=== PATIENT | female | born 1985 | race Caucasian/White ===

== ENCOUNTER 2017-11-28 02:09 | Emergency (ER) | payer SELFPAY, MEDICAID ==
[2017-11-28 02:28] LABS: URINE HCG POC HCG POSITIVE (Negative)
[2017-11-28 02:43] LABS: BILIRUBIN,URINE NEGATIVE (NEG); CLARITY,URINE CLOUDY; COLOR,URINE YELLOW; GLUCOSE,URINE NEGATIVE (NEG); NITRITE,URINE NEGATIVE (NEG); PH,URINE 6.5; PROTEIN,URINE 30 mg/dL (NEG-TRACE)
[2017-11-28 03:08] LABS: BACTERIA,URINE MANY /HPF (0-FEW); RBC,URINE >40 /HPF (0-2); WBC,URINE TNTC /HPF (0-4)
[2017-11-28 03:09] LABS: SQUAMOUS EPITHELIAL CELL,UR FEW /LPF
[2017-11-28 03:22] LABS: ADD MAN DIFF? NO
[2017-11-28 03:29] LABS: BASO % 0 % (0-3); EOS # 0.1 x10^3/uL (0.0-0.7); EOS % 1 % (0-3); HEMATOCRIT 31.2 % (36.0-47.0); HEMOGLOBIN 10.7 g/dL (12.0-15.5); LYMPH # 1.7 x10^3/uL (1.0-4.8); LYMPH % 17 % (24-48); MEAN CORPUSCULAR HEMOGLOBIN 30 pg (25-35); MEAN CORPUSCULAR HGB CONC 34 g/dL (31-37); MEAN CORPUSCULAR VOLUME 86 fL (79-100); MONO # 0.8 x10^3/uL (0.0-1.1); MONO % 8 % (0-9); NEUT # 7.2 x10^3uL (1.8-7.7); NEUT % 74 % (31-73); PLATELET COUNT 224 x10^3/uL (140-400); RED BLOOD COUNT 3.62 x10^6/uL (3.50-5.40); RED CELL DISTRIBUTION WIDTH 14.3 % (11.5-14.5); WHITE BLOOD COUNT 9.8 x10^3/uL (4.0-11.0)
[2017-11-28 03:48] LABS: ANION GAP 8 (6-14); BLOOD UREA NITROGEN 13 mg/dL (7-20); BUN/CREATININE RATIO 22 (6-20); CALCIUM 8.2 mg/dL (8.5-10.1); CARBON DIOXIDE 27 mmol/L (21-32); CHLORIDE 99 mmol/L (98-107); CREATININE 0.6 mg/dL (0.6-1.0); GFR 115.9; GLUCOSE 110 mg/dL (70-99); POTASSIUM 3.6 mmol/L (3.5-5.1); SODIUM 134 mmol/L (136-145)
[2017-11-28 03:54] LABS: ALBUMIN 3.2 g/dL (3.4-5.0); ALK PHOS 67 U/L (46-116); ALT (SGPT) 14 U/L (14-59); AST (SGOT) 13 U/L (15-37); TOTAL BILIRUBIN 0.6 mg/dL (0.2-1.0); TOTAL PROTEIN 6.5 g/dL (6.4-8.2)
[2017-11-30 14:23] LABS: CHLAMYDIA PROBE Negative (Negative); GC PROBE Negative (Negative)
== END 2017-11-28 04:52 | disposition home or self-care (01) ==
LOC: ER 02:09
DX: O03.88 Urinary tract infection following complete or unspecified spontaneous abortion (principal); N93.9 Abnormal uterine and vaginal bleeding, unspecified; F11.10 Opioid abuse, uncomplicated
CPT/HCPCS: 36415; 76801; 80053; 81001; 81025; 84702; 85025; 86900; 86901; 87086; 87491; 87591; 99285-25; Q0111

== ENCOUNTER 2019-05-01 19:39 | Inpatient (IN) | payer OTHER ==
[~2019-05-01] VITALS: Ht 165.1 cm; Wt 70.8 kg
[~2019-05-01 19:39] MED LIST: CEPH-264 PO; FLUC150T PO; SULF1TAB24 PO
[2019-05-01 20:03] VITALS: BP 122/77
[2019-05-01 20:10] LABS: BILIRUBIN,URINE NEGATIVE (NEG); CLARITY,URINE CLEAR; COLOR,URINE YELLOW; NITRITE,URINE NEGATIVE (NEG); PH,URINE 6.5; PROTEIN,URINE 30 mg/dL (NEG-TRACE)
[2019-05-01] MEDS ORDERED: LIDOCAINE 1% PF 30 ML VIAL. INJ PRN (20:15)
[2019-05-01] MEDS ORDERED: OXYTOCIN 30 UNIT/500 ML PREMIX 500 ML IV PRN (20:15)
[2019-05-01] MEDS ORDERED: 0.9 % SODIUM CHLORIDE 10 ML DISP.SYRIN. IV PRN (20:15)
[2019-05-01] MEDS ORDERED: TERBUTALINE 1 MG/ML VIAL. SQ PRN (20:15)
[2019-05-01 20:18] LABS: BARBITURATES NEG (NEG); BENZODIAZEPINES NEG (NEG); CANNABINOIDS NEG (NEG); COCAINE NEG (NEG); METHADONE NEG (NEG); OPIATES POS (NEG); PHENCYCLIDINE NEG (NEG)
[2019-05-01 20:19] LABS: AMPHETAMINE/METHAMPHETAMINE POS (NEG)
[2019-05-01 20:20] LABS: BACTERIA,URINE MANY /HPF (0-FEW); RBC,URINE OCC /HPF (0-2); SQUAMOUS EPITHELIAL CELL,UR MANY /LPF; TRICHOMONAS,URINE PRESENT
[2019-05-01 20:57] LABS: BASO # 0.1 x10^3/uL (0.0-0.2); BASO % 1 % (0-3); EOS # 0.1 x10^3/uL (0.0-0.7); EOS % 1 % (0-3); HEMATOCRIT 21.4 % (36.0-47.0); LYMPH # 1.5 x10^3/uL (1.0-4.8); LYMPH % 14 % (24-48); MEAN CORPUSCULAR HEMOGLOBIN 19 pg (25-35); MEAN CORPUSCULAR HGB CONC 31 g/dL (31-37); MEAN CORPUSCULAR VOLUME 61 fL (79-100); MONO # 0.7 x10^3/uL (0.0-1.1); MONO % 7 % (0-9); NEUT # 8.3 x10^3/uL (1.8-7.7); NEUT % 78 % (31-73); PLATELET COUNT 298 x10^3/uL (140-400); RED BLOOD COUNT 3.49 x10^6/uL (3.50-5.40); WHITE BLOOD COUNT 10.6 x10^3/uL (4.0-11.0)
[2019-05-01 21:00] LABS: HEMOGLOBIN 6.6 g/dL (12.0-15.5)
[2019-05-01 21:19] LABS: ANISOCYTOSIS SLIGHT; HYPOCHROMIA MOD; MICROCYTOSIS MARKED; PLT ESTIMATE ADEQUATE (ADEQUATE); POLYCHROMASIA SLIGHT; TOXIC GRANULATION SLIGHT
[2019-05-01] MEDS: IV RINGERS,LACTATED 1000ML 1,000 ML IV SCH ×2 (21:27→21:42)
--- NOTE | 2019-05-01 21:27 | RAD ---
CLINICAL HISTORY: confirm , size, and dates COMPARISON: None available. TECHNIQUE: Limited transabdominal ultrasound of the uterus was performed. FINDINGS: There is a single live fetus in cephalic position. Cardiac activity is visualized and documented at a rate of 162 beats per minute. The placenta is anterior and fundal without placenta previa. The amniotic fluid is normal for gestational stage. the amniotic fluid index is 10.4. Current measurements are: BPD - 8.93 cm = 36 weeks 1 days HC - 33.35 cm = 38 weeks 1 days AC - 33.7 cm = 37 weeks 4 day FL - 7.41 cm = 37 weeks 6 days The gestational size based on todays measurements is 37 weeks 3 days +/- two weeks. The estimated weight is 3243+/- 480 gm. All measured ratios and indices are within normal limits. IMPRESSION: 1. Single live intrauterine gestation with an estimated gestational age of 37 weeks 3 days. Electronically signed by: Ney Suero MD (05/01/2019 9:24 PM) [facility]
[2019-05-01] MEDS ORDERED: AMPICILLIN SODIUM 2 GM in IV NORMAL SALINE 100ML 100 ML IV ONE (21:30)
[2019-05-01 22:18] VITALS: BP 166/101
[2019-05-01 22:48] LABS: ALT (SGPT) 15 U/L (14-59); AST (SGOT) 26 U/L (15-37)
[2019-05-01] MEDS ORDERED: MAGNESIUM SULFATE 4GM 100 ML IV ONE ×2 (22:55→23:00)
[2019-05-01] MEDS ORDERED: ROPIVacaine 0.2% PF 10 ML VIAL. ONE ×2 (23:00→23:08)
[2019-05-01] MEDS ORDERED: L&D EPIDURAL SYRINGE 50 ML ONE (23:09)
[2019-05-01] MEDS ORDERED: MAGNESIUM SULFATE 20GM 500 ML IV SCH (23:15)
[2019-05-01] MEDS: MAGNESIUM SULFATE 20GM 500 ML IV SCH (23:19)
[2019-05-01] MEDS ORDERED: ROPIVacaine 0.2% IN 0.9%NACL PF 40 MG/20 ML DISP.SYRIN. EPID PRN (23:30)
[2019-05-01] MEDS ORDERED: IV RINGERS,LACTATED 1000ML 1,000 ML IV SCH (23:30)
[2019-05-01] MEDS ORDERED: L&D EPIDURAL SYRINGE 50 ML EPID PRN (23:30)
[2019-05-01] MEDS ORDERED: NALOXONE 0.4 MG/ML VIAL. IV PRN (23:30)
[2019-05-02] VITALS (7 sets, daily range): BP systolic 121–149; BP diastolic 67–89
[2019-05-02] MEDS ORDERED: OXYTOCIN PREMIX 30 UNIT/500 ML NS BAG. IV ONE (01:00)
[2019-05-02] MEDS ORDERED: MMR per PROTOCOL. MC PRN (01:17)
--- NOTE | 2019-05-02 01:22 | PDOC1 ---
OB - History Hx of Present Care: Limited Care Ultrasounds: Normal mid trimester US Obstetrical Complications: None Medical Complications: Other (SA) Other Concerns: Anemia Past Family/Social History * Past Medical, Surgical, Family and Obstetric Histories reviewed from chart. Rubella: Immune RPR/VDRL: Negative OB - Chief Complaint & HPI Date of Admission: Date of Admission: May 02, 2019 at 00:56 Chief Complaint/History : 8 Para: 3 EDC: May 19, 2019 Reason for admission: active labor Admission Nurse Assessment Rev: Yes OB - Admission Exam Physical Exam Vitals: VS - Last 72 Hours, by Label Date Time Temp Pulse Resp B/P (MAP) Pulse Ox O2 Delivery O2 Flow Rate FiO2 05/01/19 23:49 18 98 Room Air 05/01/19 22:18 98.4 99 20 166/101 98.4 05/01/19 20:03 98.2 99 20 122/77 (92) Room Air 98.2 HEENT: Normal, Nasal Mucosa Normal, Oropharynx Normal, Moist Membranes, F ontanelles Normal Heart: Regular Rate Lungs: Clear, Equal Abdomen: Gravid Extremities: Normal Pulses, No tenderness or swelling Reflexes: Normal Cervical Dilatation: 3cm Effacement: 50% Station: Ballotable Membranes: Intact Amniotic Fluid: Meconium Accelerations: Accelerations Present Decelerations: No decelerations Short Term Variability: Present Contractions on Admission: 6-10 Minutes Apart Intensity: Moderate Assessment/Plan Assessment/Plan TIUP SA Anemia Labor PIH ACSVD Mg IM Consult MURRAY POSEY MD May 02, 2019 01:22
[2019-05-02] MEDS ORDERED: 0.9 % SODIUM CHLORIDE 10 ML DISP.SYRIN. IV PRN (01:30)
[2019-05-02] MEDS ORDERED: BENZOCAINE 20% TOPICAL AEROSOL SPRAY 57GM CAN. TP PRN (01:30)
[2019-05-02] MEDS ORDERED: MAGNESIUM HYDROXIDE 2,400 MG/30 ML ORAL.SUSP. PO PRN (01:30)
[2019-05-02] MEDS ORDERED: AMPICILLIN SODIUM 1 GM in IV NORMAL SALINE 50ML 50 ML IV SCH (01:30)
[2019-05-02] MEDS ORDERED: ACETAMINOPHEN 325 MG TABLET. PO PRN (01:30)
[2019-05-02] MEDS ORDERED: IBUPROFEN 400 MG TABLET. PO PRN (01:30)
[2019-05-02] MEDS ORDERED: PHENYLEPH/MINERAL OIL/PETROLAT RECTAL OINTMENT TUBE. RC PRN (01:30)
[2019-05-02] MEDS ORDERED: diphenhydrAMINE HCL 25 MG CAPSULE PO PRN (01:30)
[2019-05-02] MEDS ORDERED: HYDROCORTISONE 1% TOPICAL OINTMENT 30GM TUBE. TP PRN (01:30)
[2019-05-02] MEDS ORDERED: MAG HYDROX/ALUMINUM HYD/SIMETH 30 ML ORAL.SUSP PO PRN (01:30)
[2019-05-02] MEDS ORDERED: SIMETHICONE 80 MG TAB.CHEW PO PRN (01:30)
[2019-05-02] MEDS ORDERED: OXYTOCIN 30 UNIT/500 ML PREMIX 500 ML IV PRN (01:30)
[2019-05-02] MEDS ORDERED: ZOLPIDEM 5 MG TABLET. PO PRN (01:30)
[2019-05-02] MEDS: IV RINGERS,LACTATED 1000ML 1,000 ML IV SCH ×2 (02:21→10:13)
[2019-05-02] MEDS: ACETAMINOPHEN 500 MG TABLET PO PRN (03:10)
[2019-05-02] MEDS: diphenhydrAMINE HCL 25 MG CAPSULE PO PRN (03:11)
[2019-05-02 04:38] LABS: CREATININE,RANDOM URINE 104.2 mg/dL (Not Establ.)
[2019-05-02] MEDS ORDERED: LIDOCAINE 2% PF 5 ML VIAL. ONE (04:57)
[2019-05-02] MEDS: IBUPROFEN 400 MG TABLET. PO SCH ×2 (06:00→14:00)
--- NOTE | 2019-05-02 06:38 | EKG ---
[facility] [address] [place] [address] Test Date: 2019-05-01 Test Time: 23:29:45 Pat Name: WHIT MORE Department: Room: 386 1 Gender: F [employer] Brakes: SWETA : 1985 Requested By: NATALIE HDZ Order Number: [id number] Reading MD: Measurements Intervals [place] Rate: 84 P: 59 CA: 168 QRS: 55 QRSD: 74 T: 55 QT: 360 QTc: 429 Interpretive Statements SINUS RHYTHM LEFT ATRIAL ABNORMALITY ABNORMAL ECG RI6.02 No previous ECG available for comparison
--- NOTE | 2019-05-02 09:37 | PDOC1 ---
History and Physical Date of Admission Date of Admission DATE: 05/02/19 TIME: 07:37 Identification/Chief Complaint Chief Complaint CONSULTED TO SEE PT WHO IS , PRESENTED IN LABOR 36 WEEKS, NO CARE ON METH, HX POLYSUBSTANCE ABUSE, C/O CHEST DISCOMFORT, now resolved on my visit, admits to using iv heroin on 04/30, meth last week DEL AT 0200 TODAY APGARS REPORTED GOOD BY RN Past Medical History Past Medical History Past Medical History Past Medical History: Other Additional Past Medical Histor: heroin use Past Surgical History: No Surgical History Alcohol Use: Occasionally Drug Use: Heroin, Other, METH GI: No pertinent hx Heme/Onc: No pertinent hx Psych: Anxiety, Addictions Family History Family History: Hypertension Social History Smoke: <1 pack per day ALCOHOL: occassional Drugs: Heroin, Crystal meth, Other (RECENTLY FIRED FROM JOB AT [employer]) Current Problem List Problem List Problems Medical Problems: (1) Anemia Status: Chronic (2) PIH ( induced hypertension) Status: Chronic Current Medications Current Medications Current Medications Sodium Chloride (Normal Saline Flush) 3 ml QSHIFT PRN IV AFTER MEDS AND BLOOD DRAWS; Start 05/01/19 at 20:15 Ringer's Solution 1,000 ml @ 125 mls/hr Q8H IV Last administered on 05/02/19at 02:21; Start 05/01/19 at 20:13 Terbutaline Sulfate (Brethine) 0.25 mg 1X PRN PRN SQ SEE COMMENTS; Start 05/01/19 at 20:15; Stop 05/02/19 at 20:14 Lidocaine HCl (Xylocaine 1% Pf 30ml Vial) 30 ml 1X PRN PRN INJ SEE COMMENTS; Start 05/01/19 at 20:15; Stop 05/03/19 at 20:14 Oxytocin/Sodium Chloride 500 ml @ 0 mls/hr CONT PRN IV SEE I/O RECORD; Start 05/01/19 at 20:15 Ampicillin Sodium 2 gm/Sodium Chloride 100 ml @ 200 mls/hr 1X ONCE IV Last administered on 05/02/19at 00:01; Start 05/01/19 at 21:30; Stop 05/01/19 at 21:59; Status DC Ampicillin Sodium 1 gm/Sodium Chloride 50 ml @ 100 mls/hr Q4H IV ; Start 05/02/19 at 01:30; Stop 05/02/19 at 04:49; Status DC Magnesium Sulfate 100 ml @ As Directed STK-MED ONCE IV ; Start 05/01/19 at 22:55; Stop 05/01/19 at 22:56; Status DC Magnesium Sulfate 100 ml @ 25 mls/hr 1X ONCE IV Last administered on 05/01/19at 23:11; Start 05/01/19 at 23:00; Stop 05/02/19 at 02:59; Status DC Magnesium Sulfate 500 ml @ 0 mls/hr Q0M IV ; Start 05/01/19 at 23:15; Status Cancel Ropivacaine (Naropin 0.2%) 10 ml STK-MED ONCE .ROUTE ; Start 05/01/19 at 23:08; Stop 05/01/19 at 23:08; Status DC Ropivacaine/ Fentanyl/NS 50 ml @ As Directed STK-MED ONCE .ROUTE ; Start 05/01/19 at 23:09; Stop 05/01/19 at 23:09; Status DC Magnesium Sulfate 500 ml @ 50 mls/hr Q10H IV Last administered on 05/01/19at 23:19; Start 05/01/19 at 23:15 Ringer's Solution 1,000 ml @ 1,000 mls/hr Q1H IV ; Start 05/01/19 at 23:30; Stop 05/02/19 at 00:29; Status DC Naloxone HCl (Narcan) 0.04 mg PRN Q1MIN PRN IV SEE COMMENTS; Start 05/01/19 at 23:30 Ropivacaine/ Fentanyl/NS 50 ml @ 14 mls/hr CONT PRN EPID PAIN Last administered on 05/01/19at 23:49; Start 05/01/19 at 23:30 Ropivacaine/ Sodium Chloride (ROPIVacaine 0.2% - 0.9%NACL PF) 40 mg 1X PRN PRN EPID PER ANESTHESIA; Start 05/01/19 at 23:30 Sodium Chloride (Normal Saline Flush) 10 ml QSHIFT PRN IV AFTER MEDS AND BLOOD DRAWS; Start 05/02/19 at 01:30 Oxytocin/Sodium Chloride 500 ml @ 62.5 mls/hr CONT PRN IV SEE I/O RECORD Last administered on 05/02/19at 02:21; Start 05/02/19 at 01:30; Stop 05/02/19 at 09:29; Status DC Acetaminophen (Tylenol) 650 mg PRN Q6HRS PRN PO MILD PAIN / TEMP; Start 05/02/19 at 01:30 Ibuprofen (Motrin) 800 mg Q8HRS PO ; Start 05/02/19 at 06:00 Ibuprofen (Motrin) 800 mg PRN Q8HRS PRN PO INFLAMMATION/PAIN PREVENTION; Start 05/02/19 at 01:30 Magnesium Hydroxide (Milk Of Magnesia) 2,400 mg PRN DAILY PRN PO CONSTIPATION; Start 05/02/19 at 01:30 Al Hydroxide/Mg Hydroxide (Mylanta Plus Xs) 30 ml PRN Q4HRS PRN PO HEARTBURN / GAS; Start 05/02/19 at 01:30 Simethicone (Gas-X) 80 mg PRN AFTMEALHC PRN PO GAS / BLOATING; Start 05/02/19 at 01:30 Diphenhydramine HCl (Benadryl) 25 mg PRN Q6HRS PRN PO ITCHING Last administered on 05/02/19at 03:13; Start 05/02/19 at 01:30 Benzocaine (Americaine) 1 spray PRN QID PRN TP TOPICAL PAIN; Start 05/02/19 at 01:30 Phenyleph/Shark Oil/Min Oil/Petrol (Preparation H) 1 aureliano PRN QID PRN RC RECTAL PAIN; Start 05/02/19 at 01:30 Hydrocortisone (Cortaid) 1 aureliano PRN QID PRN TP PERINEAL PAIN; Start 05/02/19 at 01:30 Ferrous Sulfate (Feosol) 325 mg BIDWMEALS PO ; Start 05/02/19 at 08:00 Zolpidem Tartrate (Ambien) 5 mg PRN QHS PRN PO INSOMNIA, MAY REPEAT X1; Start 05/02/19 at 01:30 Info (Do NOT chart on this placeholder) 1 ea 1X PRN PRN MC SEE COMMENTS; Start 05/02/19 at 01:30 Info (Do NOT chart on this placeholder) 1 ea 1X PRN PRN MC SEE COMMENTS; Start 05/02/19 at 01:17 Diphenhydramine HCl (Benadryl) 50 mg PRN Q6HRS PRN PO ITCHING Last administered on 05/02/19at 03:13; Start 05/02/19 at 02:45 Acetaminophen (Tylenol) 1,000 mg PRN Q6HRS PRN PO PRIOR TO PROCEDURE Last administered on 05/02/19at 03:13; Start 05/02/19 at 02:45 Lidocaine HCl (Lidocaine Pf 2% Vial) 5 ml STK-MED ONCE .ROUTE ; Start 05/02/19 at 04:57; Stop 05/02/19 at 04:57; Status DC Ropivacaine (Naropin 0.2%) 10 ml STK-MED ONCE .ROUTE ; Start 05/01/19 at 23:00; Stop 05/02/19 at 08:17; Status DC Oxytocin/Sodium Chloride (Oxytocin Premix Infusion) 30 unit STK-MED ONCE IV ; Start 05/02/19 at 01:00; Stop 05/02/19 at 08:52; Status DC Active Scripts Active Keflex (Cephalexin) 500 Mg Capsule 1 Cap PO TID 5 Days Diflucan (Fluconazole) 150 Mg Tablet 1 Tab PO ONCE Take tablet if symptoms of yeast infection while taking antibiotics. Bactrim Ds Tablet (Sulfamethoxazole/Trimethoprim) 1 Each Tablet 1 Tab PO BID Allergies Allergies: Coded Allergies: No Known Drug Allergies (Unverified , 03/19/14) ROS General: YES: Fatigue PSYCHOLOGICAL ROS: YES: Anxiety; No: Behavioral Disorder, Concentration difficultie, Decreased libido, Depression, Disorientation, Hallucinations, Hostility, Irritablity, Memory difficulties, Mood Swings, Obsessive thoughts, Physical abuse, Sexual abuse, Sleep disturbances, Suicidal ideation, Other Eyes: No Blurry vision, No Decreased vision, No Double vision, No Dry eyes, No Excessive tearing, No Eye Pain, No Itchy Eyes, No Loss of vision, No Photophobia, No Scotomata, No Uses contacts, No Uses glasses, No Other HEENT: No: Heacaches, Visual Changes, Hearing change, Nasal congestion, Nasal discharge, Oral lesions, Sinus pain, Sore Throat, Epistaxis, Sneezing, Snoring, Tinnitus, Vertigo, Vocal changes, Other ALLERGY AND IMMUNOLOGY: No: Hives, Insect Bite Sensitivity, Itchy/Watery Eyes, Nasal Congestion, Post Nasal Drip, Seasonal Allergies, Other Hematological and Lymphatic: No: Bleeding Problems, Blood Clots, Blood Transfusions, Brusing, Night Sweats, Pallor, Swollen Lymph Nodes, Other Respiratory: No: Cough, Hemoptysis, Orthopnea, Pleuritic Pain, Shortness of breath, SOB with excertion, Sputum Changes, Stridor, Tachypnea, Wheezing, Other Cardiovascular: yes Chest Pain; No Palpitations, No Orthopnea, No Paroxysmal Noc. Dyspnea, No Edema, No Lt Headedness, No Other Gastrointestinal: Yes Nausea; No Vomiting, No Abdominal Pain, No Diarrhea, No Constipation, No Melena, No Hematochezia, No Other Genitourinary: No Dysuria, No Frequency, No Incontinence, No Hematuria, No Retention, No Discharge, No Urgency, No Pain, No Flank Pain, No Other, No , No , No , No , No , No , No Musculoskeletal: No Gait Disturbance, No Joint Pain, No Joint Stiffness, No Joint Swelling, No Muscle Pain, No Muscular Weakness, No Pain In:, No Swelling In:, No Other Neurological: No Behavorial Changes, No Bowel/Bladder ControlChng, No Confusion, No Dizziness, No Gait Disturbance, No Headaches, No Impaired Coord/balance, No Memory Loss, No Numbness/Tingling, No Seizures, No Speech Problems, No Tremors, No Visual Changes, No Weakness, No Other Skin: No Dry Skin, No Eczema, No Hair Changes, No Lumps, No Mole Changes, No Mottling, No Nail Changes, No Pruritus, No Rash, No Skin Lesion Changes, No Other, No Acne Physical Exam General: Alert, Oriented X3, Cooperative, No acute distress HEENT: PERRLA Lungs: Clear to auscultation, Normal air movement Heart: RRR, no thrills, no gallops, no murmurs Breasts: Not examined Abdomen: Soft Rectal Exam: not examined PELVIC: Examination not indicated Extremities: No cyanosis, No edema Neuro: Normal speech, Cranial nerves 3-12 NL Psych/Mental Status: Mental status NL, Mood NL (DEPRESSED) Vitals Vitals Vital Signs Date Time Temp Pulse Resp B/P (MAP) Pulse Ox O2 Delivery O2 Flow Rate FiO2 05/01/19 23:49 18 98 Room Air 05/01/19 22:18 98.4 99 166/101 98.4 Labs Labs Laboratory Tests Test 05/01/19 20:00 05/01/19 20:35 05/01/19 21:35 Urine Collection Type Unknown Urine Color Yellow Urine Clarity Clear Urine pH 6.5 Urine Specific Bow 1.015 Urine Protein 30 mg/dL (NEG-TRACE) Urine Glucose (UA) Negative mg/dL (NEG) Urine Ketones (Stick) Negative mg/dL (NEG) Urine Blood Negative (NEG) Urine Nitrite Negative (NEG) Urine Bilirubin Negative (NEG) Urine Urobilinogen Dipstick 1.0 mg/dL (0.2 mg/dL) Urine Leukocyte Esterase Large (NEG) Urine RBC Occ /HPF (0-2) Urine WBC 5-10 /HPF (0-4) Urine Squamous Epithelial Cells Many /LPF Urine Bacteria Many /HPF (0-FEW) Urine Trichomonas Present Urine Random Creatinine 104.2 mg/dL (Not Establ.) Urine Random Total Protein 50.8 mg/dL (Not Establ.) Urine Protein/Creatinine Ratio 488 mg/g (0-200) Urine Opiates Screen Pos (NEG) Urine Methadone Screen Neg (NEG) Urine Barbiturates Neg (NEG) Urine Phencyclidine Screen Neg (NEG) Urine Amphetamine/Methamphetamine Pos (NEG) Urine Benzodiazepines Screen Neg (NEG) Urine Cocaine Screen Neg (NEG) Urine Cannabinoids Screen Neg (NEG) Urine Ethyl Alcohol Neg (NEG) White Blood Count 10.6 x10^3/uL (4.0-11.0) Red Blood Count 3.49 x10^6/uL (3.50-5.40) Hemoglobin 6.6 g/dL (12.0-15.5) Hematocrit 21.4 % (36.0-47.0) Mean Corpuscular Volume 61 fL (79-100) Mean Corpuscular Hemoglobin 19 pg (25-35) Mean Corpuscular Hemoglobin Concent 31 g/dL (31-37) Red Cell Distribution Width 18.0 % (11.5-14.5) Platelet Count 298 x10^3/uL (140-400) Neutrophils (%) (Auto) 78 % (31-73) Lymphocytes (%) (Auto) 14 % (24-48) Monocytes (%) (Auto) 7 % (0-9) Eosinophils (%) (Auto) 1 % (0-3) Basophils (%) (Auto) 1 % (0-3) Neutrophils # (Auto) 8.3 x10^3/uL (1.8-7.7) Lymphocytes # (Auto) 1.5 x10^3/uL (1.0-4.8) Monocytes # (Auto) 0.7 x10^3/uL (0.0-1.1) Eosinophils # (Auto) 0.1 x10^3/uL (0.0-0.7) Basophils # (Auto) 0.1 x10^3/uL (0.0-0.2) Toxic Granulation Slight Platelet Estimate Adequate (ADEQUATE) Polychromasia Slight Hypochromasia Mod Anisocytosis Slight Microcytosis Marked Treponema pallidum Antibody Nonreactive (Nonreactive) Hepatitis B Surface Antigen Nonreactive (Nonreactive) Uric Acid 5.4 mg/dL (2.6-6.0) Aspartate Amino Transf (AST/SGOT) 26 U/L (15-37) Alanine Aminotransferase (ALT/SGPT) 15 U/L (14-59) Creatine Kinase 91 U/L (26-192) Creatine Kinase MB (Mass) 2.6 ng/mL (0.0-3.6) Creatine Kinase MB Relative Index 2.9 % (0-4) Troponin I Quantitative < 0.017 ng/mL (0.000-0.055) BQ-Rsl-T-Type Natriuretic Peptide 73 pg/mL (0-124) Laboratory Tests Test 05/01/19 20:00 05/01/19 20:35 05/01/19 21:35 Urine Collection Type Unknown Urine Color Yellow Urine Clarity Clear Urine pH 6.5 Urine Specific Bow 1.015 Urine Protein 30 mg/dL (NEG-TRACE) Urine Glucose (UA) Negative mg/dL (NEG) Urine Ketones (Stick) Negative mg/dL (NEG) Urine Blood Negative (NEG) Urine Nitrite Negative (NEG) Urine Bilirubin Negative (NEG) Urine Urobilinogen Dipstick 1.0 mg/dL (0.2 mg/dL) Urine Leukocyte Esterase Large (NEG) Urine RBC Occ /HPF (0-2) Urine WBC 5-10 /HPF (0-4) Urine Squamous Epithelial Cells Many /LPF Urine Bacteria Many /HPF (0-FEW) Urine Trichomonas Present Urine Random Creatinine 104.2 mg/dL (Not Establ.) Urine Random Total Protein 50.8 mg/dL (Not Establ.) Urine Protein/Creatinine Ratio 488 mg/g (0-200) Urine Opiates Screen Pos (NEG) Urine Methadone Screen Neg (NEG) Urine Barbiturates Neg (NEG) Urine Phencyclidine Screen Neg (NEG) Urine Amphetamine/Methamphetamine Pos (NEG) Urine Benzodiazepines Screen Neg (NEG) Urine Cocaine Screen Neg (NEG) Urine Cannabinoids Screen Neg (NEG) Urine Ethyl Alcohol Neg (NEG) White Blood Count 10.6 x10^3/uL (4.0-11.0) Red Blood Count 3.49 x10^6/uL (3.50-5.40) Hemoglobin 6.6 g/dL (12.0-15.5) Hematocrit 21.4 % (36.0-47.0) Mean Corpuscular Volume 61 fL (79-100) Mean Corpuscular Hemoglobin 19 pg (25-35) Mean Corpuscular Hemoglobin Concent 31 g/dL (31-37) Red Cell Distribution Width 18.0 % (11.5-14.5) Platelet Count 298 x10^3/uL (140-400) Neutrophils (%) (Auto) 78 % (31-73) Lymphocytes (%) (Auto) 14 % (24-48) Monocytes (%) (Auto) 7 % (0-9) Eosinophils (%) (Auto) 1 % (0-3) Basophils (%) (Auto) 1 % (0-3) Neutrophils # (Auto) 8.3 x10^3/uL (1.8-7.7) Lymphocytes # (Auto) 1.5 x10^3/uL (1.0-4.8) Monocytes # (Auto) 0.7 x10^3/uL (0.0-1.1) Eosinophils # (Auto) 0.1 x10^3/uL (0.0-0.7) Basophils # (Auto) 0.1 x10^3/uL (0.0-0.2) Toxic Granulation Slight Platelet Estimate Adequate (ADEQUATE) Polychromasia Slight Hypochromasia Mod Anisocytosis Slight Microcytosis Marked Treponema pallidum Antibody Nonreactive (Nonreactive) Hepatitis B Surface Antigen Nonreactive (Nonreactive) Uric Acid 5.4 mg/dL (2.6-6.0) Aspartate Amino Transf (AST/SGOT) 26 U/L (15-37) Alanine Aminotransferase (ALT/SGPT) 15 U/L (14-59) Creatine Kinase 91 U/L (26-192) Creatine Kinase MB (Mass) 2.6 ng/mL (0.0-3.6) Creatine Kinase MB Relative Index 2.9 % (0-4) Troponin I Quantitative < 0.017 ng/mL (0.000-0.055) QS-Ook-E-Type Natriuretic Peptide 73 pg/mL (0-124) Images Images PATIENT: WHIT MORE ACCOUNT: [id number] : 1985 LOCATION: 3 SO LND AGE: 34 SEX: F EXAM STATUS: ADM IN ORD. PHYSICIAN: MURRAY POSEY MD REASON: confirm , size, and dates PROCEDURE: OB LIMITED CLINICAL HISTORY: confirm , size, and dates COMPARISON: None available. TECHNIQUE: Limited transabdominal ultrasound of the uterus was performed. FINDINGS: There is a single live fetus in cephalic position. Cardiac activity is visualized and documented at a rate of 162 beats per minute. The placenta is anterior and fundal without placenta previa. The amniotic fluid is normal for gestational stage. the amniotic fluid index is 10.4. Current measurements are: BPD - 8.93 cm = 36 weeks 1 days HC - 33.35 cm = 38 weeks 1 days AC - 33.7 cm = 37 weeks 4 day FL - 7.41 cm = 37 weeks 6 days The gestational size based on todays measurements is 37 weeks 3 days +/- two weeks. The estimated weight is 3243+/- 480 gm. All measured ratios and indices are within normal limits. IMPRESSION: 1. Single live intrauterine gestation with an estimated gestational age of 37 weeks 3 days. Electronically signed by: Ney Suero MD (05/01/2019 9:24 PM) [facility] VTE Prophylaxis Ordered VTE Prophylaxis Devices: No VTE Pharmacological Prophylaxi: Contraindicated Assessment/Plan Assessment/Plan IMPRESSION 1. CHEST PAIN, POSSIBLE DEMAND ISCHEMIA 2. WITH POLYSUBSTANCE ABUSE 3. SEVERE ANEMIA, PORB FE DEF, MICROCYTIC 4. METH ABUSE 5. POSSIBLE GERD 6. UNSTABLE SOCIAL SITUATION, LONG-STANDING 7. 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
[2019-05-02] MEDS ORDERED: THIAMINE 100 MG TABLET. PO SCH (11:00)
[2019-05-02 11:15] LABS: BASO % 0 % (0-3); EOS % 0 % (0-3); HEMATOCRIT 25.9 % (36.0-47.0); LYMPH # 1.4 x10^3/uL (1.0-4.8); LYMPH % 11 % (24-48); MEAN CORPUSCULAR HEMOGLOBIN 20 pg (25-35); MEAN CORPUSCULAR HGB CONC 31 g/dL (31-37); MEAN CORPUSCULAR VOLUME 64 fL (79-100); MONO # 0.7 x10^3/uL (0.0-1.1); MONO % 5 % (0-9); NEUT # 10.5 x10^3/uL (1.8-7.7); NEUT % 83 % (31-73); PLATELET COUNT 297 x10^3/uL (140-400); RED BLOOD COUNT 4.04 x10^6/uL (3.50-5.40); WHITE BLOOD COUNT 12.7 x10^3/uL (4.0-11.0)
--- NOTE | 2019-05-02 11:21 | CARD ---
MR#: [id number] Date of Study: 05/02/2019 Ordering Physician: DANK VOGT, Referring Physician: DANK VOGT, Tech: Emma Tinsley YRIS APPROVED REPORT EXAM: Two-dimensional and M-mode echocardiogram with Doppler and color Doppler. Other Information Quality : Good INDICATION Chest Pain Postpardum 2D DIMENSIONS RVDd2.6 (2.9-3.5cm)Left Atrium(2D)2.4 (1.6-4.0cm) IVSd0.9 (0.7-1.1cm)Aortic Root(2D)2.8 (2.0-3.7cm) LVDd4.3 (3.9-5.9cm)LVOT Diameter1.8 (1.8-2.4cm) PWd0.9 (0.7-1.1cm)LVDs2.7 (2.5-4.0cm) FS (%) 36.3 %SV54.6 ml LVEF(%)60.0 (>50%) Aortic Valve AoV Peak Preet.125.0cm/sAoV VTI18.5cm AO Peak GR.6.2mmHgLVOT Peak Preet.105.6cm/s AO Mean GR.4mmHgAVA (VMAX)2.13cm2 AKIL (VTI)2.30cm2 Mitral Valve MV E Ivmozdyw394.1cm/sMV DECEL [id number] MV A Rmokzmhg76.9cm/sE/A Ratio1.4 Tricuspid Valve TR P. Sggcxnvb729pb/sRAP [id number] TR Peak Gr.79qyCiHXDF88koVp Pulmonary Vein S1 Ywrzwcyq85.4cm/sD2 Mzpfuszs08.6cm/s LEFT VENTRICLE The left ventricle is normal size. There is normal left ventricular wall thickness. The left ventricu lar systolic function is normal. The Ejection Fraction is 55-60%. There is normal LV segmental wall m otion. The left ventricular diastolic function and filling is normal for age. RIGHT VENTRICLE The right ventricle is normal size. The right ventricular systolic function is normal. ATRIA The left atrium size is normal. The right atrium size is normal. The interatrial septum is intact wit h no evidence for an atrial septal defect or patent foramen ovale as noted on 2-D or Doppler imaging. AORTIC VALVE The aortic valve is calcified but opens well. Doppler and Color Flow revealed no significant aortic r egurgitation. There is no significant aortic valvular stenosis. MITRAL VALVE The mitral valve is normal in structure and function. There is no evidence of mitral valve prolapse. There is no mitral valve stenosis. Doppler and Color-flow revealed trace mitral regurgitation. TRICUSPID VALVE The tricuspid valve is normal in structure and function. Doppler and Color Flow revealed trace tricus pid regurgitation. The PA pressure was estimated at 31 mmHg. There is no tricuspid valve stenosis. PULMONIC VALVE The pulmonic valve is not well visualized. Doppler and Color Flow revealed trace pulmonic valvular re gurgitation. There is no pulmonic valvular stenosis. GREAT VESSELS The aortic root is normal in size. The ascending aorta is not well seen. The IVC is normal in size an d collapses >50% with inspiration. PERICARDIAL EFFUSION There is no evidence of significant pericardial effusion. Critical Notification Critical Value: No <Conclusion> The left ventricular systolic function is normal. The Ejection Fraction is 55-60%. There is normal LV segmental wall motion. Trace mitral regurgitation. Trace tricuspid regurgitation. The PA pressure was estimated at 31 mmHg. There is no evidence of significant pericardial effusion. Signed by : Ezequiel Adkins, Electronically Approved : 05/02/2019 11:21:21
[2019-05-02 11:33] LABS: ALBUMIN 1.7 g/dL (3.4-5.0); ALBUMIN/GLOBULIN RATIO 0.4 (1.0-1.7); CREATININE 0.6 mg/dL (0.6-1.0); GFR 114.4; POTASSIUM 3.8 mmol/L (3.5-5.1); TOTAL BILIRUBIN 1.8 mg/dL (0.2-1.0); TOTAL PROTEIN 5.9 g/dL (6.4-8.2)
[2019-05-02] MEDS: MAGNESIUM SULFATE 20GM 500 ML IV SCH ×2 (11:33→22:05)
--- NOTE | 2019-05-02 12:13 | PDOC ---
VAGINAL DELIVERY DATE DATE: 05/02/19 TIME: 12:12 : Other Para: 3 VAGINAL DELIVERY: VTX VACCUM ASSISTED: No PLACENTA: Spontaneous SEX: Female WEIGHT Weight [ ] Nuchal Cord: Yes, Times 1, Tight Amniotic Fluid: Meconium PAIN: Epidural EPISIOTOMY: No EXTENSION: No EBL 300cc COMPLICATIONS None CONDITION Stable Signs of Intrauterine Infectio: None Shoulder Dystocia: No DIAGNOSIS MURRAY Mcfarland MD May 02, 2019 12:13
--- NOTE | 2019-05-02 12:58 | RAD ---
EXAM: Chest, single view. HISTORY: Chest pain. COMPARISON: None. FINDINGS: A frontal view of the chest is obtained. There is no infiltrate, pleural effusion or pneumothorax. The heart is normal in size. There are circumscribed nodules overlying the lower thorax due to nipple shadows. IMPRESSION: No acute pulmonary finding. Electronically signed by: Neeta Flores MD (05/02/2019 12:55 PM) [facility]
--- NOTE | 2019-05-02 13:31 | PDOC2 ---
DANK VOGT SSN/SSBN ASSISTANT NAVIGATOR 05/02/19 1331: CARDIAC CONSULT DATE OF CONSULT Date of Consult DATE: 05/02/19 TIME: 13:30 REASON FOR CONSULT Reason for Consult: Labor patient with chest pain REFERRING PHYSICIAN Referring Physician: Dr. Aviles SOURCE Source: Chart review, Patient HISTORY OF PRESENT ILLNESS HISTORY OF PRESENT ILLNESS This is a 34 yo female, with a history of polysubstance abuse, who presented in labor at 36 weeks. C/o stabbing intermittent pain in her central chest for the last couple of days. Not associated with drug use. Worse with certain movements. No associated dizziness, diaphoresis, palpitations, or nausea/vomiting. None further since delivery. Last used methamphetamine and morphine yesterday. PAST MEDICAL HISTORY Cardiovascular: No pertinent hx Pulmonary: No pertinent hx GI: No pertinent hx Heme/Onc: No pertinent hx Hepatobiliary: No pertinent hx Psych: Addictions (polysubstance abuse ) Rheumatologic: No pertinent hx Infectious disease: No pertinent hx ENT: No pertinent hx Renal/: No pertinent hx Endocrine: No pertinent hx Dermatology: No pertinent hx PAST SURGICAL HISTORY Past Surgical History: No pertinent history FAMILY HISTORY Family History: Heart Disease SOCIAL HISTORY Smoke: <1 pack per day ALCOHOL: none Drugs: Crystal meth, Other (heroin) Lives: with Family CURRENT MEDICATIONS CURRENT MEDICATIONS Current Medications Medications (Trade) Dose Ordered Sig/Siva Route PRN Reason Start Time Stop Time Status Last Admin Dose Admin Ringer's Solution 1,000 ml @ 125 mls/hr Q8H IV 05/01/19 20:13 05/02/19 10:13 Ampicillin Sodium 2 gm/Sodium Chloride 100 ml @ 200 mls/hr 1X ONCE IV 05/01/19 21:30 05/01/19 21:59 DC 05/02/19 00:01 Magnesium Sulfate 100 ml @ 25 mls/hr 1X ONCE IV 05/01/19 23:00 05/02/19 02:59 DC 05/01/19 23:11 Magnesium Sulfate 500 ml @ 50 mls/hr Q10H IV 05/01/19 23:15 05/02/19 11:33 Ropivacaine/ Fentanyl/NS 50 ml @ 14 mls/hr CONT PRN EPID PAIN 05/01/19 23:30 05/01/19 23:49 Oxytocin/Sodium Chloride 500 ml @ 62.5 mls/hr CONT PRN IV SEE I/O RECORD 05/02/19 01:30 05/02/19 09:29 DC 05/02/19 02:21 Diphenhydramine HCl (Benadryl) 25 mg PRN Q6HRS PRN PO ITCHING 05/02/19 01:30 05/02/19 03:13 Diphenhydramine HCl (Benadryl) 50 mg PRN Q6HRS PRN PO ITCHING 05/02/19 02:45 05/02/19 03:13 Acetaminophen (Tylenol) 1,000 mg PRN Q6HRS PRN PO PRIOR TO PROCEDURE 05/02/19 02:45 05/02/19 03:13 Thiamine Mononitrate (Vitamin B-1) 100 mg DAILY PO 05/02/19 11:00 05/02/19 11:32 ALLERGIES ALLERGIES: Coded Allergies: No Known Drug Allergies (Unverified , 03/19/14) ROS Review of System 14 point ROS conducted with pertinent positives noted above in HPI PHYSICAL EXAM General: Alert, Oriented X3, Cooperative, No acute distress HEENT: Atraumatic, Mucous membr. moist/pink Lungs: Clear to auscultation, Normal air movement Heart: Regular rate, Normal S1, Normal S2 Abdomen: Soft, No tenderness Extremities: No edema Skin: No breakdown, No significant lesion Neuro: Normal speech, Sensation intact Psych/Mental Status: Mental status NL, Mood NL MUSCULOSKELETAL: No deformity VITALS/I&O VITALS/I&O: Vital Signs Date Time Temp Pulse Resp B/P (MAP) Pulse Ox O2 Delivery O2 Flow Rate FiO2 05/01/19 23:49 18 98 Room Air 05/01/19 22:18 98.4 99 166/101 98.4 I & O 05/01/19 05/01/19 05/02/19 15:00 23:00 07:00 Intake Total 1000 ml Balance 1000 ml LABS Lab: Laboratory Tests Test 05/01/19 20:00 05/01/19 20:35 05/01/19 21:35 05/02/19 10:24 Urine Collection Type Unknown Urine Color Yellow Urine Clarity Clear Urine pH 6.5 Urine Specific [place] 1.015 Urine Protein 30 mg/dL (NEG-TRACE) Urine Glucose (UA) Negative mg/dL (NEG) Urine Ketones (Stick) Negative mg/dL (NEG) Urine Blood Negative (NEG) Urine Nitrite Negative (NEG) Urine Bilirubin Negative (NEG) Urine Urobilinogen Dipstick 1.0 mg/dL (0.2 mg/dL) Urine Leukocyte Esterase Large (NEG) Urine RBC Occ /HPF (0-2) Urine WBC 5-10 /HPF (0-4) Urine Squamous Epithelial Cells Many /LPF Urine Bacteria Many /HPF (0-FEW) Urine Trichomonas Present Urine Random Creatinine 104.2 mg/dL (Not Establ.) Urine Random Total Protein 50.8 mg/dL (Not Establ.) Urine Protein/Creatinine Ratio 488 mg/g (0-200) H Urine Opiates Screen Pos (NEG) Urine Methadone Screen Neg (NEG) Urine Barbiturates Neg (NEG) Urine Phencyclidine Screen Neg (NEG) Urine Amphetamine/Methamphetamine Pos (NEG) Urine Benzodiazepines Screen Neg (NEG) Urine Cocaine Screen Neg (NEG) Urine Cannabinoids Screen Neg (NEG) Urine Ethyl Alcohol Neg (NEG) White Blood Count 10.6 x10^3/uL (4.0-11.0) 12.7 x10^3/uL (4.0-11.0) H Red Blood Count 3.49 x10^6/uL (3.50-5.40) L 4.04 x10^6/uL (3.50-5.40) Hemoglobin 6.6 g/dL (12.0-15.5) *L 8.0 g/dL (12.0-15.5) L Hematocrit 21.4 % (36.0-47.0) L 25.9 % (36.0-47.0) L Mean Corpuscular Volume 61 fL (79-100) L 64 fL (79-100) L Mean Corpuscular Hemoglobin 19 pg (25-35) L 20 pg (25-35) L Mean Corpuscular Hemoglobin Concent 31 g/dL (31-37) 31 g/dL (31-37) Red Cell Distribution Width 18.0 % (11.5-14.5) H 20.0 % (11.5-14.5) H Platelet Count 298 x10^3/uL (140-400) 297 x10^3/uL (140-400) Neutrophils (%) (Auto) 78 % (31-73) H 83 % (31-73) H Lymphocytes (%) (Auto) 14 % (24-48) L 11 % (24-48) L Monocytes (%) (Auto) 7 % (0-9) 5 % (0-9) Eosinophils (%) (Auto) 1 % (0-3) 0 % (0-3) Basophils (%) (Auto) 1 % (0-3) 0 % (0-3) Neutrophils # (Auto) 8.3 x10^3/uL (1.8-7.7) H 10.5 x10^3/uL (1.8-7.7) H Lymphocytes # (Auto) 1.5 x10^3/uL (1.0-4.8) 1.4 x10^3/uL (1.0-4.8) Monocytes # (Auto) 0.7 x10^3/uL (0.0-1.1) 0.7 x10^3/uL (0.0-1.1) Eosinophils # (Auto) 0.1 x10^3/uL (0.0-0.7) 0.0 x10^3/uL (0.0-0.7) Basophils # (Auto) 0.1 x10^3/uL (0.0-0.2) 0.0 x10^3/uL (0.0-0.2) Toxic Granulation Slight Platelet Estimate Adequate (ADEQUATE) Polychromasia Slight Hypochromasia Mod Anisocytosis Slight Microcytosis Marked Treponema pallidum Antibody Nonreactive (Nonreactive) Hepatitis B Surface Antigen Nonreactive (Nonreactive) HIV (1&2) Antibody Screen Nonreactive (Nonreactive) Uric Acid 5.4 mg/dL (2.6-6.0) Aspartate Amino Transferase (AST) 26 U/L (15-37) 31 U/L (15-37) Alanine Aminotransferase (ALT) 15 U/L (14-59) 12 U/L (14-59) L Creatine Kinase 91 U/L (26-192) Creatine Kinase MB (Mass) 2.6 ng/mL (0.0-3.6) Creatine Kinase MB Relative Index 2.9 % (0-4) Troponin I Quantitative < 0.017 ng/mL (0.000-0.055) < 0.017 ng/mL (0.000-0.055) DN-Tfj-H-Type Natriuretic Peptide 73 pg/mL (0-124) Sodium Level 137 mmol/L (136-145) Potassium Level 3.8 mmol/L (3.5-5.1) Chloride Level 104 mmol/L (98-107) Carbon Dioxide Level 25 mmol/L (21-32) Anion Gap 8 (6-14) Blood Urea Nitrogen 9 mg/dL (7-20) Creatinine 0.6 mg/dL (0.6-1.0) Estimated GFR (Cockcroft-Gault) 114.4 BUN/Creatinine Ratio 15 (6-20) Glucose Level 108 mg/dL (70-99) H Calcium Level 8.0 mg/dL (8.5-10.1) L Total Bilirubin 1.8 mg/dL (0.2-1.0) H Alkaline Phosphatase 277 U/L (46-116) H Total Protein 5.9 g/dL (6.4-8.2) L Albumin 1.7 g/dL (3.4-5.0) L Albumin/Globulin Ratio 0.4 (1.0-1.7) L Laboratory Tests 05/01/19 20:35 05/02/19 10:24 Laboratory Tests 05/02/19 10:24 ASSESSMENT/PLAN ASSESSMENT/PLAN 1. Chest pain, atypical. Most probably MSK in nature. AMI ruled out. Echo showed preserved LV systolic function, no WMA 2. Polysubstance abuse; discussed/encouraged cessation Recommendations Nor further cardiac workup warranted at this time Supportive care TROY GONZALES MD 05/02/19 1707: CARDIAC CONSULT ASSESSMENT/PLAN ASSESSMENT/PLAN Patient seen and examined. Agree with FOURCHETTE SEWER's assessment and plan. Chest pain with atypical features and most probably musculoskeletal Myocardial infarction has been ruled out 2-D echo showed normal LV function without any wall motion abnormalities No further cardiac workup is indicated at this time Importance of abstinence from substance abuse emphasized Thank you for your consultation ADNK VOTG APRN May 02, 2019 13:31 TROY GONZALES MD May 02, 2019 17:07
[2019-05-02] MEDS ORDERED: cloNIDine HCL 0.1 MG TABLET PO PRN (14:15)
[2019-05-02] MEDS ORDERED: HALOPERIDOL LACTATE 5 MG/ML VIAL. IVP PRN (14:15)
[2019-05-02] MEDS ORDERED: LORazepam 1 MG TABLET PO PRN ×2 (14:15)
[2019-05-02] MEDS ORDERED: MULTIVIT INFUSN,ADULT 4,VIT K 10 ML, THIAMINE INJ 100 MG, FOLIC ACID INJ 1 MG in IV NOR... IV SCH (14:30)
[2019-05-02] MEDS: FERROUS SULFATE 325 MG TABLET. PO SCH ×2 (15:03→17:03)
[2019-05-02] MEDS ORDERED: metroNIDAZOLE 500 MG TABLET PO SCH (15:30)
--- NOTE | 2019-05-02 16:44 | PDOC2 ---
GI CONSULT Reason For Consult: Hepatitis, transaminitis HPI: HPI: 34 y/o female s/p vaginal delivery this morning. PIH on magnesium. H/o meth, heroin, and morphine abuse. Bili 1.8, Alk Phos 277 - GI asked to see for this. Hep A, B, and C negative. No chronic GI issues including reflux/heartburn, dysphagia, n/v, abd pain, diarrhea, constipation, hematochezia, or melena. No previous EGD or colonoscopy. No GB, liver, pancreas, or PUD history. PMH: PMH: substance abuse, cellulitis, UTI, bacterial vaginosis Social History: Smoke: <1 pack per day ALCOHOL: occassional Drugs: Heroin, Crystal meth, Other (morphine) ROS: Per HPI - drowsy when I saw. Vitals: Vitals: Vital Signs Date Time Temp Pulse Resp B/P (MAP) Pulse Ox O2 Delivery O2 Flow Rate FiO2 05/02/19 13:49 98.3 90 16 133/73 (93) 98.3 05/01/19 23:49 98 Room Air Labs: Labs: Laboratory Tests Test 05/01/19 20:00 05/01/19 20:35 05/01/19 21:35 05/02/19 10:24 Urine Collection Type Unknown Urine Color Yellow Urine Clarity Clear Urine pH 6.5 Urine Specific [place] 1.015 Urine Protein 30 mg/dL (NEG-TRACE) Urine Glucose (UA) Negative mg/dL (NEG) Urine Ketones (Stick) Negative mg/dL (NEG) Urine Blood Negative (NEG) Urine Nitrite Negative (NEG) Urine Bilirubin Negative (NEG) Urine Urobilinogen Dipstick 1.0 mg/dL (0.2 mg/dL) Urine Leukocyte Esterase Large (NEG) Urine RBC Occ /HPF (0-2) Urine WBC 5-10 /HPF (0-4) Urine Squamous Epithelial Cells Many /LPF Urine Bacteria Many /HPF (0-FEW) Urine Trichomonas Present Urine Random Creatinine 104.2 mg/dL (Not Establ.) Urine Random Total Protein 50.8 mg/dL (Not Establ.) Urine Protein/Creatinine Ratio 488 mg/g (0-200) Urine Opiates Screen Pos (NEG) Urine Methadone Screen Neg (NEG) Urine Barbiturates Neg (NEG) Urine Phencyclidine Screen Neg (NEG) Urine Amphetamine/Methamphetamine Pos (NEG) Urine Benzodiazepines Screen Neg (NEG) Urine Cocaine Screen Neg (NEG) Urine Cannabinoids Screen Neg (NEG) Urine Ethyl Alcohol Neg (NEG) White Blood Count 10.6 x10^3/uL (4.0-11.0) 12.7 x10^3/uL (4.0-11.0) Red Blood Count 3.49 x10^6/uL (3.50-5.40) 4.04 x10^6/uL (3.50-5.40) Hemoglobin 6.6 g/dL (12.0-15.5) 8.0 g/dL (12.0-15.5) Hematocrit 21.4 % (36.0-47.0) 25.9 % (36.0-47.0) Mean Corpuscular Volume 61 fL (79-100) 64 fL (79-100) Mean Corpuscular Hemoglobin 19 pg (25-35) 20 pg (25-35) Mean Corpuscular Hemoglobin Concent 31 g/dL (31-37) 31 g/dL (31-37) Red Cell Distribution Width 18.0 % (11.5-14.5) 20.0 % (11.5-14.5) Platelet Count 298 x10^3/uL (140-400) 297 x10^3/uL (140-400) Neutrophils (%) (Auto) 78 % (31-73) 83 % (31-73) Lymphocytes (%) (Auto) 14 % (24-48) 11 % (24-48) Monocytes (%) (Auto) 7 % (0-9) 5 % (0-9) Eosinophils (%) (Auto) 1 % (0-3) 0 % (0-3) Basophils (%) (Auto) 1 % (0-3) 0 % (0-3) Neutrophils # (Auto) 8.3 x10^3/uL (1.8-7.7) 10.5 x10^3/uL (1.8-7.7) Lymphocytes # (Auto) 1.5 x10^3/uL (1.0-4.8) 1.4 x10^3/uL (1.0-4.8) Monocytes # (Auto) 0.7 x10^3/uL (0.0-1.1) 0.7 x10^3/uL (0.0-1.1) Eosinophils # (Auto) 0.1 x10^3/uL (0.0-0.7) 0.0 x10^3/uL (0.0-0.7) Basophils # (Auto) 0.1 x10^3/uL (0.0-0.2) 0.0 x10^3/uL (0.0-0.2) Toxic Granulation Slight Platelet Estimate Adequate (ADEQUATE) Polychromasia Slight Hypochromasia Mod Anisocytosis Slight Microcytosis Marked Treponema pallidum Antibody Nonreactive (Nonreactive) Hepatitis B Surface Antigen Nonreactive (Nonreactive) Nonreactive (Nonreactive) HIV (1&2) Antibody Screen Nonreactive (Nonreactive) Uric Acid 5.4 mg/dL (2.6-6.0) Aspartate Amino Transf (AST/SGOT) 26 U/L (15-37) 31 U/L (15-37) Alanine Aminotransferase (ALT/SGPT) 15 U/L (14-59) 12 U/L (14-59) Creatine Kinase 91 U/L (26-192) Creatine Kinase MB (Mass) 2.6 ng/mL (0.0-3.6) Creatine Kinase MB Relative Index 2.9 % (0-4) Troponin I Quantitative < 0.017 ng/mL (0.000-0.055) < 0.017 ng/mL (0.000-0.055) XI-Hcu-T-Type Natriuretic Peptide 73 pg/mL (0-124) Sodium Level 137 mmol/L (136-145) Potassium Level 3.8 mmol/L (3.5-5.1) Chloride Level 104 mmol/L (98-107) Carbon Dioxide Level 25 mmol/L (21-32) Anion Gap 8 (6-14) Blood Urea Nitrogen 9 mg/dL (7-20) Creatinine 0.6 mg/dL (0.6-1.0) Estimated GFR (Cockcroft-Gault) 114.4 BUN/Creatinine Ratio 15 (6-20) Glucose Level 108 mg/dL (70-99) Calcium Level 8.0 mg/dL (8.5-10.1) Total Bilirubin 1.8 mg/dL (0.2-1.0) Alkaline Phosphatase 277 U/L (46-116) Total Protein 5.9 g/dL (6.4-8.2) Albumin 1.7 g/dL (3.4-5.0) Albumin/Globulin Ratio 0.4 (1.0-1.7) Hepatitis A IgM Antibody Nonreactive (Nonreactive) Hepatitis B Core IgM Antibody Nonreactive (Nonreactive) Hepatitis C IgG Antibody Nonreactive (Nonreactive) Allergies: Coded Allergies: No Known Drug Allergies (Unverified , 03/19/14) Medications: Current Medications Medications (Trade) Dose Ordered Sig/Siva Route PRN Reason Start Time Stop Time Status Last Admin Dose Admin Ringer's Solution 1,000 ml @ 125 mls/hr Q8H IV 05/01/19 20:13 05/02/19 10:13 Ampicillin Sodium 2 gm/Sodium Chloride 100 ml @ 200 mls/hr 1X ONCE IV 05/01/19 21:30 05/01/19 21:59 DC 05/02/19 00:01 Magnesium Sulfate 100 ml @ 25 mls/hr 1X ONCE IV 05/01/19 23:00 05/02/19 02:59 DC 05/01/19 23:11 Magnesium Sulfate 500 ml @ 50 mls/hr Q10H IV 05/01/19 23:15 05/02/19 11:33 Ropivacaine/ Fentanyl/NS 50 ml @ 14 mls/hr CONT PRN EPID PAIN 05/01/19 23:30 05/01/19 23:49 Oxytocin/Sodium Chloride 500 ml @ 62.5 mls/hr CONT PRN IV SEE I/O RECORD 05/02/19 01:30 05/02/19 09:29 DC 05/02/19 02:21 Diphenhydramine HCl (Benadryl) 25 mg PRN Q6HRS PRN PO ITCHING 05/02/19 01:30 05/02/19 03:13 Ferrous Sulfate (Feosol) 325 mg BIDWMEALS PO 05/02/19 08:00 05/02/19 15:03 Diphenhydramine HCl (Benadryl) 50 mg PRN Q6HRS PRN PO ITCHING 05/02/19 02:45 05/02/19 03:13 Acetaminophen (Tylenol) 1,000 mg PRN Q6HRS PRN PO PRIOR TO PROCEDURE 05/02/19 02:45 05/02/19 03:13 Thiamine Mononitrate (Vitamin B-1) 100 mg DAILY PO 05/02/19 11:00 05/02/19 15:50 DC 05/02/19 11:32 Multivitamins 10 ml/Thiamine HCl 100 mg/Folic Acid 1 mg/Sodium Chloride 1,011.2 ml @ 100 mls/ hr DAILY IV 05/02/19 14:30 05/06/19 19:07 05/02/19 15:14 Imaging: Imaging: CXR IMPRESSION: No acute pulmonary finding. Echo <Conclusion> The left ventricular systolic function is normal. The Ejection Fraction is 55-60%. There is normal LV segmental wall motion. Trace mitral regurgitation. Trace tricuspid regurgitation. The PA pressure was estimated at 31 mmHg. There is no evidence of significant pericardial effusion. PE: GEN: NAD HEENT: Atraumatic, PERRL LUNGS: CTAB HEART: RRR ABD: quiet, soft, non-tender EXTREMITY: No edema SKIN: No rashes, no jaundice NEURO/PSYCH: A & O �3 - drowsy A/P: A/P: S/p delivery, PIH Substance abuse Microcytic anemia s/p transfusion Elevated bili (1.8) and Alk Phos (277 - ?placenta) -- Consider RUQ US. Will review w/ Dr. Ramírez. NIKIA AN May 02, 2019 16:44
[2019-05-02] MEDS: metroNIDAZOLE 500 MG TABLET PO SCH (22:04)
[2019-05-03] VITALS (11 sets, daily range): BP systolic 116–153; BP diastolic 74–94
[2019-05-03 04:59] LABS: BASO # 0.1 x10^3/uL (0.0-0.2); BASO % 1 % (0-3); EOS # 0.1 x10^3/uL (0.0-0.7); EOS % 1 % (0-3); HEMATOCRIT 21.8 % (36.0-47.0); LYMPH # 2.1 x10^3/uL (1.0-4.8); LYMPH % 16 % (24-48); MEAN CORPUSCULAR HEMOGLOBIN 20 pg (25-35); MEAN CORPUSCULAR HGB CONC 32 g/dL (31-37); MEAN CORPUSCULAR VOLUME 64 fL (79-100); MONO # 0.9 x10^3/uL (0.0-1.1); MONO % 7 % (0-9); NEUT # 9.6 x10^3/uL (1.8-7.7); NEUT % 75 % (31-73); PLATELET COUNT 297 x10^3/uL (140-400); RED CELL DISTRIBUTION WIDTH 19.4 % (11.5-14.5); WHITE BLOOD COUNT 12.7 x10^3/uL (4.0-11.0)
[2019-05-03 05:22] LABS: HEMOGLOBIN 6.9 g/dL (12.0-15.5)
[2019-05-03 05:28] LABS: ALBUMIN 1.6 g/dL (3.4-5.0); CALCIUM 6.9 mg/dL (8.5-10.1); CREATININE 0.6 mg/dL (0.6-1.0); DIRECT BILIRUBIN 0.1 mg/dL (0.0-0.2); GFR 114.4; POTASSIUM 4.2 mmol/L (3.5-5.1); TOTAL BILIRUBIN 0.2 mg/dL (0.2-1.0); TOTAL PROTEIN 5.5 g/dL (6.4-8.2)
[2019-05-03] MEDS ORDERED: ACETAMINOPHEN 325 MG TABLET. PO PRN (05:45)
[2019-05-03] MEDS ORDERED: diphenhydrAMINE HCL 25 MG CAPSULE PO PRN (05:45)
[2019-05-03] MEDS: ACETAMINOPHEN 500 MG TABLET PO PRN (05:56)
[2019-05-03] MEDS: diphenhydrAMINE HCL 25 MG CAPSULE PO PRN (05:56)
[2019-05-03 07:55] LABS: % BANDS 13 % (0-9); % METAS 1 % (0-0); % MYELOS 2 % (0-0); NUCLEATED RBC 2
[2019-05-03 07:56] LABS: % LYMPHS 13 % (24-48); % MONOS 5 % (0-10); % SEGS 66 % (35-66); PLT ESTIMATE ADEQUATE (ADEQUATE)
[2019-05-03 07:57] LABS: ANISOCYTOSIS MOD; MICROCYTOSIS MOD; POLYCHROMASIA PRESENT
[2019-05-03] MEDS ORDERED: THIAMINE INJ 100 MG in IV DEXTROSE 5% 50 ML IV SCH (09:00)
[2019-05-03] MEDS ORDERED: IRON POLYSACCHARIDE COMPLEX 150 MG CAPSULE PO SCH (09:00)
--- NOTE | 2019-05-03 10:23 | PDOC ---
[employer] PROGRESS NOTE Chief Complaint Chief Complaint induced HTN History of Present Illness History of Present Illness 05/03/19 Pt seen and examined at bedside Pt appears tired Discussed pt's hx of meth and heroin usage D/w RN Vitals/I&O Vitals/I&O: Vital Signs Date Time Temp Pulse Resp B/P (MAP) Pulse Ox O2 Delivery O2 Flow Rate FiO2 05/03/19 09:13 98.1 72 18 140/84 98.1 05/03/19 07:55 98 Room Air I & O 05/02/19 05/02/19 05/03/19 15:00 23:00 07:00 Intake Total 100 ml 400 ml Output Total 575 ml 2255 ml 725 ml Balance -475 ml -2255 ml -325 ml Physical Exam General: Alert, Oriented X3, Cooperative, No acute distress Heart: Regular rate, Normal S1, Normal S2 Lungs: Clear Abdomen: Soft, No tenderness Extremities: No edema Skin: No breakdown, No significant lesion Labs Labs: Laboratory Tests Test 05/02/19 10:24 05/03/19 04:30 White Blood Count 12.7 x10^3/uL (4.0-11.0) 12.7 x10^3/uL (4.0-11.0) Red Blood Count 4.04 x10^6/uL (3.50-5.40) 3.40 x10^6/uL (3.50-5.40) Hemoglobin 8.0 g/dL (12.0-15.5) 6.9 g/dL (12.0-15.5) Hematocrit 25.9 % (36.0-47.0) 21.8 % (36.0-47.0) Mean Corpuscular Volume 64 fL (79-100) 64 fL (79-100) Mean Corpuscular Hemoglobin 20 pg (25-35) 20 pg (25-35) Mean Corpuscular Hemoglobin Concent 31 g/dL (31-37) 32 g/dL (31-37) Red Cell Distribution Width 20.0 % (11.5-14.5) 19.4 % (11.5-14.5) Platelet Count 297 x10^3/uL (140-400) 297 x10^3/uL (140-400) Neutrophils (%) (Auto) 83 % (31-73) 75 % (31-73) Lymphocytes (%) (Auto) 11 % (24-48) 16 % (24-48) Monocytes (%) (Auto) 5 % (0-9) 7 % (0-9) Eosinophils (%) (Auto) 0 % (0-3) 1 % (0-3) Basophils (%) (Auto) 0 % (0-3) 1 % (0-3) Neutrophils # (Auto) 10.5 x10^3/uL (1.8-7.7) 9.6 x10^3/uL (1.8-7.7) Lymphocytes # (Auto) 1.4 x10^3/uL (1.0-4.8) 2.1 x10^3/uL (1.0-4.8) Monocytes # (Auto) 0.7 x10^3/uL (0.0-1.1) 0.9 x10^3/uL (0.0-1.1) Eosinophils # (Auto) 0.0 x10^3/uL (0.0-0.7) 0.1 x10^3/uL (0.0-0.7) Basophils # (Auto) 0.0 x10^3/uL (0.0-0.2) 0.1 x10^3/uL (0.0-0.2) Sodium Level 137 mmol/L (136-145) 141 mmol/L (136-145) Potassium Level 3.8 mmol/L (3.5-5.1) 4.2 mmol/L (3.5-5.1) Chloride Level 104 mmol/L (98-107) 109 mmol/L (98-107) Carbon Dioxide Level 25 mmol/L (21-32) 25 mmol/L (21-32) Anion Gap 8 (6-14) 7 (6-14) Blood Urea Nitrogen 9 mg/dL (7-20) 6 mg/dL (7-20) Creatinine 0.6 mg/dL (0.6-1.0) 0.6 mg/dL (0.6-1.0) Estimated GFR (Cockcroft-Gault) 114.4 114.4 BUN/Creatinine Ratio 15 (6-20) Glucose Level 108 mg/dL (70-99) 95 mg/dL (70-99) Calcium Level 8.0 mg/dL (8.5-10.1) 6.9 mg/dL (8.5-10.1) Total Bilirubin 1.8 mg/dL (0.2-1.0) 0.2 mg/dL (0.2-1.0) Aspartate Amino Transf (AST/SGOT) 31 U/L (15-37) 28 U/L (15-37) Alanine Aminotransferase (ALT/SGPT) 12 U/L (14-59) 13 U/L (14-59) Alkaline Phosphatase 277 U/L (46-116) 221 U/L (46-116) Troponin I Quantitative < 0.017 ng/mL (0.000-0.055) Total Protein 5.9 g/dL (6.4-8.2) 5.5 g/dL (6.4-8.2) Albumin 1.7 g/dL (3.4-5.0) 1.6 g/dL (3.4-5.0) Albumin/Globulin Ratio 0.4 (1.0-1.7) Hepatitis A IgM Antibody Nonreactive (Nonreactive) Hepatitis B Surface Antigen Nonreactive (Nonreactive) Hepatitis B Core IgM Antibody Nonreactive (Nonreactive) Hepatitis C IgG Antibody Nonreactive (Nonreactive) Segmented Neutrophils % 66 % (35-66) Band Neutrophils % 13 % (0-9) Lymphocytes % 13 % (24-48) Monocytes % 5 % (0-10) Metamyelocytes % 1 % (0-0) Myelocytes % 2 % (0-0) Nucleated Red Blood Cells 2 Platelet Estimate Adequate (ADEQUATE) Large Platelets Present Polychromasia Present Anisocytosis Mod Microcytosis Mod Direct Bilirubin 0.1 mg/dL (0.0-0.2) Review of Systems Review of Systems: Pt denies chest pain Pt denies swelling Assessment and Plan Assessmemt and Plan Problems Medical Problems: (1) Anemia Status: Chronic (2) PIH ( induced hypertension) Status: Chronic Assessment induced HTN with polysubstance abuse Microcytic anemia Meth abuse Plan Wound care IM Thiamine IV Folate Multivitamins PO Labs Full code Drug counseling Emphasized poor prognosis if pt continues drug usage Comment Review of Relevant I have reviewed the following items dave (where applicable) has been applied. Medications: Current Medications Medications (Trade) Dose Ordered Sig/Siva Route PRN Reason Start Time Stop Time Status Last Admin Dose Admin Thiamine Mononitrate (Vitamin B-1) 100 mg DAILY PO 05/02/19 11:00 05/02/19 15:50 DC 05/02/19 11:32 Multivitamins 10 ml/Thiamine HCl 100 mg/Folic Acid 1 mg/Sodium Chloride 1,011.2 ml @ 100 mls/ hr DAILY IV 05/02/19 14:30 05/06/19 19:07 05/02/19 15:14 Metronidazole (Flagyl) 500 mg Q12HR PO 05/02/19 15:30 05/02/19 19:27 DC 05/02/19 17:00 Metronidazole (Flagyl) 500 mg Q12HR PO 05/02/19 23:30 05/02/19 22:05 RADHA REED III DO May 03, 2019 10:23
[2019-05-03] MEDS: IBUPROFEN 400 MG TABLET. PO SCH (13:37)
[2019-05-03] MEDS: FERROUS SULFATE 325 MG TABLET. PO SCH ×2 (13:38→17:30)
[2019-05-03] MEDS: metroNIDAZOLE 500 MG TABLET PO SCH (13:38)
--- NOTE | 2019-05-03 13:38 | PDOC ---
Objective: Objective: D/w nurse - pt refused abd US and is going home today. Vital Signs: Vital Signs Date Time Temp Pulse Resp B/P (MAP) Pulse Ox O2 Delivery O2 Flow Rate FiO2 05/03/19 12:00 98.8 86 18 147/80 98.8 05/03/19 07:55 98 Room Air Labs: Laboratory Tests Test 05/03/19 04:30 White Blood Count 12.7 x10^3/uL Red Blood Count 3.40 x10^6/uL Hemoglobin 6.9 g/dL Hematocrit 21.8 % Mean Corpuscular Volume 64 fL Mean Corpuscular Hemoglobin 20 pg Mean Corpuscular Hemoglobin Concent 32 g/dL Red Cell Distribution Width 19.4 % Platelet Count 297 x10^3/uL Neutrophils (%) (Auto) 75 % Lymphocytes (%) (Auto) 16 % Monocytes (%) (Auto) 7 % Eosinophils (%) (Auto) 1 % Basophils (%) (Auto) 1 % Neutrophils # (Auto) 9.6 x10^3/uL Lymphocytes # (Auto) 2.1 x10^3/uL Monocytes # (Auto) 0.9 x10^3/uL Eosinophils # (Auto) 0.1 x10^3/uL Basophils # (Auto) 0.1 x10^3/uL Segmented Neutrophils % 66 % Band Neutrophils % 13 % Lymphocytes % 13 % Monocytes % 5 % Metamyelocytes % 1 % Myelocytes % 2 % Nucleated Red Blood Cells 2 Platelet Estimate Adequate Large Platelets Present Polychromasia Present Anisocytosis Mod Microcytosis Mod Sodium Level 141 mmol/L Potassium Level 4.2 mmol/L Chloride Level 109 mmol/L Carbon Dioxide Level 25 mmol/L Anion Gap 7 Blood Urea Nitrogen 6 mg/dL Creatinine 0.6 mg/dL Estimated GFR (Cockcroft-Gault) 114.4 Glucose Level 95 mg/dL Calcium Level 6.9 mg/dL Total Bilirubin 0.2 mg/dL Direct Bilirubin 0.1 mg/dL Aspartate Amino Transf (AST/SGOT) 28 U/L Alanine Aminotransferase (ALT/SGPT) 13 U/L Alkaline Phosphatase 221 U/L Total Protein 5.5 g/dL Albumin 1.6 g/dL PE: GEN: signing documents w/ another staff member A/P: Elevated bili - resolved Elevated Alk Phos - improved Microcytic anemia -- Refused US. Plans to DC. NIKIA AN May 03, 2019 13:38
[2019-05-03 15:19] LABS: HEMATOCRIT 24.5 % (36.0-47.0); HEMOGLOBIN 7.8 g/dL (12.0-15.5); RED BLOOD COUNT 3.69 x10^6/uL (3.50-5.40); RED CELL DISTRIBUTION WIDTH 21.5 % (11.5-14.5)
[2019-05-03 15:34] LABS: ALBUMIN 1.7 g/dL (3.4-5.0); ALBUMIN/GLOBULIN RATIO 0.4 (1.0-1.7); CALCIUM 7.7 mg/dL (8.5-10.1); CREATININE 0.7 mg/dL (0.6-1.0); GFR 95.8; POTASSIUM 4.1 mmol/L (3.5-5.1); TOTAL BILIRUBIN 0.4 mg/dL (0.2-1.0); TOTAL PROTEIN 5.6 g/dL (6.4-8.2)
--- NOTE | 2019-05-03 17:29 | PDOC3 ---
OB DISCHARGE SUMMARY DATE OF ADMISSION: 05/01/19 DATE OF DISCHARGE: 05/03/19 REASON FOR ADMISSION: Onset of labor, Other (elevated BP, limited PNC, h/o drug use, severe anemia) INTRAPARTUM PROCEDURES: Spontanous Vag Deliv PROBLEM LIST AT DISCHARGE Problems Medical Problems: (1) Anemia Status: Chronic (2) PIH ( induced hypertension) Status: Chronic DISCHARGE DIAGNOSIS: Term Delivered DISCHARGE INFORMATION: Activity (ad jorge luis), Diet (regular), Instructions (pelvic rest x 6 wks) HOSPITAL COURSE Term gestation delivered vaginally without complication. Comorbid conditions included severe anemia, limited PNC and h/o drug use. NATALIE HDZ Jr, MD May 03, 2019 17:29
[2019-05-03] MEDS ORDERED: METR500T PO (17:33)
[2019-05-03] MEDS ORDERED: IBUP-1027 PO (17:33)
[2019-05-03] MEDS ORDERED: FERR325T72 PO (17:33)
--- NOTE | 2019-05-03 17:34 | DISCH ---
DISCHARGE INSTRUCTIONS Condition on Discharge Condition on Discharge: Stable Activity After Discharge Activity Instructions for Disc: Resume previous activity, Activity as tolerated Lifting Instructions after Dis: No heavy lifting Driving Instructions after Dis: Do not drive today Diet after Discharge Diet after Discharge: Regular Contacting the DRDoris after DC Call your doctor for: If your condition worsens Follow-Up Follow up with: Dr. Hartmann in 6 wks NATALIE HARTMANN Jr, MD May 03, 2019 17:34
--- NOTE | 2019-05-03 18:06 | PATHOLOGY ---
[facility] Accession Number: [id number] . 01 Material submitted: . placenta - PLACENTA AND CORD . 01 Clinical history: . Unknown GBS, meconium fluid, PIH, positive drug use; 37 weeks; EDC 05/19/19 Nuchal cord around neck x1, loose; no care, active drug use, critically low HBG 6.6; complains of chest pain at 8:20 PM on 05/01; meconium amniotic fluid foul-smelling; approximately 37.3 weeks gestational by sonogram . 02 Diagnosis: 667 gram early term placenta of an estimated 37.3 weeks gestation with attached membranes and umbilical cord: - Subamniotic pigmented macrophages consistent with meconium staining. - Focally increased subchorionic fibrin deposition. - Focally increased syncytial knots. - Chorangiosis, focal. (JPM:guicho; 05/03/2019) [facility] 05/03/2019 1736 Local . 02 Comment: There is no evidence of an acute chorioamnionitis. There are no infarcts. (LEATHAM:guicho; 05/03/2019) . 02 Electronically signed: . Roberto Carlos Ramires MD, Pathologist NPI- [id number] . 01 Gross description: . The specimen is received in formalin, labeled "Cassie Lane, placenta". Received is a schaefer placenta with attached membranes and umbilical cord with a trimmed placental weight of 667 g and measuring 21.2 x 18.7 x 2.9 cm in greatest dimensions. The membranes are dusky romero-green in appearance, and the site of membrane rupture is 1.8 cm from the placental margin. The surface is intact and green-romero, with a normal arborizing vasculature pattern, and completely detached amnion. The trivascular umbilical cord measures 60.9 cm in length by 2.3 cm in diameter and inserts eccentrically, 5.0 cm from the closest placental margin. The umbilical cord is dusky campbell-romero to blue-acmpbell in appearance with moderate helical twisting. The maternal surface is intact and complete; a slight amount of adherent blood coagulum is seen on the surface. Sectioning reveals pink-romero to pink-red with no grossly distinct nodules or lesions. The specimen is submitted representatively as follows: . A1 umbilical cord and surface vessels A2 umbilical cord and membrane roll A3-A4 full-thickness placental cross-section, divided into and maternal aspects. (CAA; 05/02/2019) QA/QA 05/02/2019 1440 Local . 02 Pathologist provided ICD-10: O77.0, Z3A.37 . 02 CPT . 158911 Specimen Comment: A courtesy copy of this report has been sent to Specimen Comment: [phone], . Specimen Comment: Report sent to / DR POSEY Performed at: 01 [facility] [address], [place] [id number] MD Corey Galdamez MD Phone: [phone] Performed at: 02 [facility] [address], [place] [id number] MD Roberto Carlos Ramires MD Phone: [phone]
[2019-05-07] MEDS ORDERED: FOLIC ACID 1 MG TABLET. PO SCH (09:00)
[2019-05-07] MEDS ORDERED: THIAMINE IM 200 MG/2 ML VIAL. IM SCH (09:00)
[2019-05-07] MEDS ORDERED: MULTIVITAMIN with MINERAL TABLET. PO SCH (09:00)
== END 2019-05-03 18:55 | disposition home or self-care (01) | DRG 807 ==
LOC: 3 SO LND 19:39 → OBSVTOIN 05-02 00:56 → 3 SO LND 05-02 11:53
PROVIDERS: ADMIT Obstetrics & Gynecology; ATTEND Obstetrics & Gynecology
PROC: 30233N1 Transfusion of Nonautologous Red Blood Cells into Peripheral Vein, Percutaneous Approach (ICD-10-PCS; 2019-05-01)
PROC: 10E0XZZ Delivery of Products of Conception, External Approach (ICD-10-PCS; principal; 2019-05-02)
PROC: 10907ZC Drainage of Amniotic Fluid, Therapeutic from Products of Conception, Via Natural or Artificial Opening (ICD-10-PCS; 2019-05-02)
PROC: 00HU33Z Insertion of Infusion Device into Spinal Canal, Percutaneous Approach (ICD-10-PCS; 2019-05-02)
PROC: 3E0R3BZ Introduction of Anesthetic Agent into Spinal Canal, Percutaneous Approach (ICD-10-PCS; 2019-05-02)
DX: O13.4 Gestational [pregnancy-induced] hypertension without significant proteinuria, complicating childbirth (principal); Z37.0 Single live birth; O99.324 Drug use complicating childbirth; D50.9 Iron deficiency anemia, unspecified; O99.02 Anemia complicating childbirth; O77.0 Labor and delivery complicated by meconium in amniotic fluid; F41.9 Anxiety disorder, unspecified; O99.344 Other mental disorders complicating childbirth; O99.334 Smoking (tobacco) complicating childbirth; F17.210 Nicotine dependence, cigarettes, uncomplicated; F15.10 Other stimulant abuse, uncomplicated; O69.1XX0 Labor and delivery complicated by cord around neck, with compression, not applicable or unspecified; Z3A.37 37 weeks gestation of pregnancy; Z82.49 Family history of ischemic heart disease and other diseases of the circulatory system; O99.824 Streptococcus B carrier state complicating childbirth; R07.89 Other chest pain; O26.893 Other specified pregnancy related conditions, third trimester
CPT/HCPCS: 36415; 71045; 76815; 80048; 80053; 80076; 80307; 81001; 82553; 82570; 83880; 84156; 84450; 84460; 84484; 84550; 85007; 85025; 85027; 86078; 86592; 86703; 86705; 86709; 86762; 86803; 86850; 86900; 86901; 86920; 87040; 87086; 87340; 88307; 93005; 93306; G0378; G0379; J0290; J2001; J2060; J2590; J2795; J3475; J7030; J7120; P9016; Q0163